=== PATIENT | male | born 1975 | race Caucasian/White ===

== ENCOUNTER 2016-11-16 22:40 | Emergency (ER) | payer OTHER ==
[~2016-11-16] VITALS: Ht 175.3 cm; Wt 84.1 kg
[2016-11-16 22:49] VITALS: BP 134/84; PULSE 79; RESP 16; O2SAT 96
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
[2016-11-16] MEDS ORDERED: 0.9% Sodium Chloride 1,000 ML IV ONE (23:02)
[2016-11-16 23:18] LABS: Mean Corpuscular Volume 89.9 fL (81-100)
[2016-11-16 23:19] LABS: BASOPHILS % (AUTO) 0.4 % (0-3); EOSINOPHILS % (AUTO) 0.9 % (0-5); MONOCYTES % (AUTO) 7.8 % (4-12); Mean Corpuscular Hemoglobin 32.1 pg (27.0-35.0); NEUTROPHILS % (AUTO) 73.2 % (40-74); Platelet Count 238 bil/L (150-400)
[2016-11-16] MEDS ORDERED: HYDROmorphone 1 mg/mL Inj IVPUSH PRN (23:20)
[2016-11-16 23:55] LABS: Magnesium 2.1 mg/dL (1.6-2.6)
[2016-11-17] MEDS ORDERED: IBUP-1827 PO (00:16)
[2016-11-17] MEDS ORDERED: METH-313 PO (00:16)
[2016-11-17 00:31] VITALS: BP 135/82; PULSE 84; RESP 19; O2SAT 95
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
== END 2016-11-17 00:33 | disposition home or self-care (01) ==
LOC: SED 22:40
DX: S06.0X0A Concussion without loss of consciousness, initial encounter (principal); S16.1XXA Strain of muscle, fascia and tendon at neck level, initial encounter; S29.012A Strain of muscle and tendon of back wall of thorax, initial encounter; V43.12XA Car passenger injured in collision with other type car in nontraffic accident, initial encounter; Y92.39 Other specified sports and athletic area as the place of occurrence of the external cause; Y93.89 Activity, other specified; Y99.8 Other external cause status
CPT/HCPCS: 36415; 70450; 71010; 71260; 72125; 80053; 83690; 83735; 85025; 96361; 96374; 96375; 99285; G0390; J1170; J1885; J7030; Q9967